=== PATIENT | female | born 1955 | race Asian ===

== ENCOUNTER → 2017-02-05 | Outpatient (CLI) | payer MEDICARE, OTHER ==
[~2017-02-05] VITALS: Ht 172.7 cm; Wt 111.0 kg
[~2017-02-05] MED LIST: ALBU8.5H IH; BUDE10.2 IH; IPRNEB IH; OSEL75 PO; PRED20 PO
[2017-02-05 12:42] VITALS: BP 110/62
== END | disposition home or self-care (01) ==
LOC: SRCNTR 11:50
PROVIDERS: ATTEND Internal Medicine Critical Care Medicine
DX: J44.9 Chronic obstructive pulmonary disease, unspecified (principal); J06.9 Acute upper respiratory infection, unspecified; R05 Cough; E66.01 Morbid (severe) obesity due to excess calories; J30.9 Allergic rhinitis, unspecified; M41.80 Other forms of scoliosis, site unspecified
CPT/HCPCS: G0463

== ENCOUNTER → 2017-03-11 | Outpatient (CLI) | payer MEDICARE, OTHER ==
[~2017-03-11] VITALS: Ht 172.7 cm; Wt 111.9 kg
[~2017-03-11] MED LIST changes: +ARFO15VI2 IH
[2017-03-11 11:32] VITALS: BP 121/62
== END | disposition home or self-care (01) ==
LOC: SRCNTR 11:29
PROVIDERS: ATTEND Internal Medicine Critical Care Medicine
DX: E66.01 Morbid (severe) obesity due to excess calories (principal); R05 Cough; J06.9 Acute upper respiratory infection, unspecified; J44.1 Chronic obstructive pulmonary disease with (acute) exacerbation; J30.9 Allergic rhinitis, unspecified; M41.9 Scoliosis, unspecified; G47.33 Obstructive sleep apnea (adult) (pediatric); K21.9 Gastro-esophageal reflux disease without esophagitis; G56.00 Carpal tunnel syndrome, unspecified upper limb; M50.20 Other cervical disc displacement, unspecified cervical region; D16.9 Benign neoplasm of bone and articular cartilage, unspecified
CPT/HCPCS: G0463

== ENCOUNTER → 2017-05-28 | Outpatient (CLI) | payer MEDICARE, OTHER ==
[~2017-05-28] MED LIST changes: -IPRNEB IH; -OSEL75 PO
== END | disposition home or self-care (01) ==
LOC: RADPV 10:39
PROVIDERS: ATTEND Orthopaedic Surgery
DX: M25.511 Pain in right shoulder (principal); M25.512 Pain in left shoulder

== ENCOUNTER → 2017-07-25 | Outpatient (CLI) | payer MEDICARE, OTHER ==
[~2017-07-25] VITALS: Ht 172.7 cm; Wt 113.0 kg
[~2017-07-25] MED LIST changes: +FURO20 PO; +OMEP10 PO
[2017-07-25 13:06] VITALS: BP 112/75
== END | disposition home or self-care (01) ==
LOC: SRCNTR 12:45
PROVIDERS: ATTEND Internal Medicine Critical Care Medicine
DX: J44.9 Chronic obstructive pulmonary disease, unspecified (principal); E66.01 Morbid (severe) obesity due to excess calories; G47.33 Obstructive sleep apnea (adult) (pediatric); G56.00 Carpal tunnel syndrome, unspecified upper limb; J06.9 Acute upper respiratory infection, unspecified; K21.9 Gastro-esophageal reflux disease without esophagitis; M41.80 Other forms of scoliosis, site unspecified; Z87.891 Personal history of nicotine dependence
CPT/HCPCS: G0463

== ENCOUNTER → 2018-02-20 | Outpatient (CLI) | payer MEDICARE, OTHER ==
[~2018-02-20] VITALS: Ht 172.7 cm; Wt 115.0 kg
[~2018-02-20] MED LIST changes: -ALBU8.5H IH; +ALBU8.5H8 IH; -BUDE10.2 IH; +FISH1CAP50 PO; +LACT1CAP78 PO; +MULT-1203 PO
[2018-02-20 13:24] VITALS: BP 137/72
== END | disposition home or self-care (01) ==
LOC: SRCNTR 13:05
PROVIDERS: ATTEND Internal Medicine Critical Care Medicine
DX: J06.9 Acute upper respiratory infection, unspecified (principal); J42 Unspecified chronic bronchitis; M41.9 Scoliosis, unspecified; J30.9 Allergic rhinitis, unspecified; E66.01 Morbid (severe) obesity due to excess calories
CPT/HCPCS: G0463

== ENCOUNTER → 2018-04-01 | Outpatient (CLI) | payer MEDICARE, OTHER ==
[~2018-04-01] VITALS: Ht 172.7 cm; Wt 113.0 kg
[~2018-04-01] MED LIST changes: +BUDE10.2 IH; -PRED20 PO; +TIOT4MIS5 IH
[2018-04-01 12:24] VITALS: BP 131/72
== END | disposition home or self-care (01) ==
LOC: SRCNTR 12:10
PROVIDERS: ATTEND Internal Medicine Critical Care Medicine
DX: J44.1 Chronic obstructive pulmonary disease with (acute) exacerbation (principal); E66.01 Morbid (severe) obesity due to excess calories; J30.9 Allergic rhinitis, unspecified; M41.9 Scoliosis, unspecified; K21.9 Gastro-esophageal reflux disease without esophagitis
CPT/HCPCS: G0463